=== PATIENT | female | born 1980 | race Caucasian/White ===

== ENCOUNTER 2016-02-13 20:58 | Emergency (ER) | payer SELFPAY ==
[~2016-02-13] VITALS: Ht 157.5 cm; Wt 77.3 kg
[~2016-02-13 20:58] MED LIST: ACETAMINOPHEN W1 TA6 PO; ALBUTEROL S0.4 MG/ML INH; ALBUTEROL0.83 MG/ML IH; AMOXICILLIN 50500 MG PO; AMOXICILLIN 8751 TAB PO; AMOXICILLIN250 MG PO; ANUSOL-HC SUPPO25 MG RC; ATIVAN 0.50.5 MG/TAB PO; ATIVAN1 MG PO; BACTRIM DS 8001 TAB PO; CELEXA; CELEXA20 MG PO; CEPHALEXIN500 M1 PO; CIPRO 500MG TA500 MG PO; CLARITIN 1010 MG/TAB PO; CLINDAMYCIN HC300 MG PO; DOXYCYCLINE 10100 MG PO; EC NAPROSYN500 MG PO; EFFEXOR XR75 MG/CAP PO; ESCITALOPRAM; FISH OIL CONC1000 MG PO; FISH OIL CONCEN1 SGL PO; FLAGYL500 MG PO; FLEXERIL10 MG PO; FLONASE NASAL S16 GM NS; LORTAB 5/500 501 TAB PO; MACROBID 1100 MG/CAP PO; METRONIDAZOLE500 MG PO; MOTRIN800 MG PO; NICODERM14 MG/24 H TD; NORCO 325 MG-51 TAB PO; NORCO 325 MG-7.1 TAB PO; ONE DAILY1 TA1 PO; OPTIVAR IO; PEPCID 20MG TAB20 MG PO; PERCOCET 325 MG1 TA2 PO; PERCOCET 5/321 UDTAB PO; PHENERGAN 25 TA25 MG PO; PHENERGAN25 MG RC; PREDNISONE20 MG PO; PRENATAL1 TA2 PO; PROMETHAZINE12.5 M5 PO; PROVENTIL0.09 MG/A1 IH; TYLENOL 500MG500 MG PO; TYLENOL W/COD1 UDTAB PO; VALTREX500 MG PO; WOMEN'S ONE DAI1 TAB PO; ZITHROMAX 250M250 MG PO; ZITHROMAX Z PA250 MG PO; ZOFRAN 4MG T4 MG/TAB PO; ZOFRAN ODT4 MG PO; ZOVIRAX 200MG200 MG PO; oral birth control PO
[2016-02-13 20:59] VITALS: TEMP 99.6
[2016-02-13 21:29] LABS: BASO # 0.1 (0.0-0.2); BASO % 0.8 % (0.0-2.0); EOS # 0.2 (0.0-0.7); GRAN # 3.6 (1.4-6.5); GRAN % 59.8 % (42.2-75.2); HEMATOCRIT 38.8 % (37.0-47.0); HEMOGLOBIN 13.4 g/dl (12.5-16.0); LYMPH # 1.8 (1.2-3.4); MEAN CELL VOLUME 87 fl (80.0-100.0); MEAN CORPUSCULAR HEMOGLOBIN 30 pg (27.0-31.0); MEAN CORPUSCULAR HGB CONC 35 g/dl (33.0-37.0); MEAN PLATELET VOLUME 10.7 fl (7.4-10.4); MONO # 0.4 (0.1-0.6); MONO % 5.9 % (1.7-9.3); PLATELET COUNT 175 K/mm3 (130-400); RED BLOOD COUNT 4.46 M/mm3 (4.10-5.30); REDCELL DISTRIBUTION WIDTH-CV 12.5 % (11.5-14.5)
[2016-02-13 21:33] LABS: INR 1.2 (0.8-3.0)
[2016-02-13 21:42] LABS: ADJUSTED CALCIUM 9.5 mg/dL (8.4-10.2); ALANINE AMINOTRANSFERASE 121 U/L (9-52); ALBUMIN 4.1 gm/dL (3.5-5.0); ALKALINE PHOSPHATASE 140 U/L (50-136); ANION GAP 11 mmol/L (7-16); BILIRUBIN,TOTAL 0.9 mg/dL (0.0-1.0); BLOOD UREA NITROGEN 10 mg/dL (7-17); CALCIUM 9.6 mg/dL (8.4-10.2); CARBON DIOXIDE 25 mmol/L (22-30); CHLORIDE 99 mmol/L (98-107); CREATININE, serum 0.56 mg/dL (0.52-1.25); GLUCOSE 275 mg/dL (74-106); LIPASE 311 U/L (23-300); POTASSIUM 3.7 mmol/L (3.4-5.0); SODIUM 136 mmol/L (137-145)
[2016-02-13 21:55] LABS: TROPONIN-I < 0.012 ng/mL (0.000-0.034)
[2016-02-14 00:02] VITALS: BP 115/74; PULSE 83
== END 2016-02-14 00:05 | disposition home or self-care (01) ==
LOC: COL.ER 20:58
PROVIDERS: Emergency Medicine
DX: R07.9 Chest pain, unspecified (principal)
CPT/HCPCS: G0463; J2270

== ENCOUNTER 2016-05-16 21:01 | Emergency (ER) | payer SELFPAY ==
[~2016-05-16] VITALS: Ht 157.5 cm; Wt 75.0 kg
[2016-05-16 21:08] VITALS: TEMP 100.4
[2016-05-16] MEDS ORDERED: GLUCOPHAGE1000 MG PO (21:11)
[2016-05-16 22:27] LABS: BASO # 0.1 (0.0-0.2); BASO % 0.8 % (0.0-2.0); EOS # 0.3 (0.0-0.7); GRAN # 4.3 (1.4-6.5); GRAN % 69.1 % (42.2-75.2); HEMATOCRIT 40.1 % (37.0-47.0); HEMOGLOBIN 13.5 g/dl (12.5-16.0); LYMPH # 1.2 (1.2-3.4); LYMPH % 18.8 % (20.0-51.0); MEAN CELL VOLUME 86 fl (80.0-100.0); MEAN CORPUSCULAR HEMOGLOBIN 29 pg (27.0-31.0); MEAN CORPUSCULAR HGB CONC 34 g/dl (33.0-37.0); MEAN PLATELET VOLUME 10.3 fl (7.4-10.4); MONO # 0.4 (0.1-0.6); MONO % 5.8 % (1.7-9.3); PLATELET COUNT 168 K/mm3 (130-400); RED BLOOD COUNT 4.67 M/mm3 (4.10-5.30); REDCELL DISTRIBUTION WIDTH-CV 12.6 % (11.5-14.5); WHITE BLOOD COUNT 6.2 K/mm3 (4.8-10.8)
[2016-05-16 22:36] LABS: HCG-QUALITATIVE URINE NEGATIVE
[2016-05-16 22:37] LABS: ALBUMIN 4.5 gm/dL (3.5-5.0); CALCIUM 9.4 mg/dL (8.4-10.2); CREATININE, serum 0.55 mg/dL (0.52-1.25); PH 6 (5-8); POTASSIUM 3.3 mmol/L (3.4-5.0); SQUAMOUS EPITHELIAL 0-2 /hpf; TOTAL PROTEIN 7.2 gm/dL (6.4-8.2); URINE APPEARANCE Clear; URINE BACTERIA None Seen /hpf; URINE BILIRUBIN Negative (NEGATIVE); URINE BLOOD Negative (NEGATIVE); URINE COLOR Yellow; URINE GLUCOSE 2+ (NEGATIVE); URINE KETONE Negative (NEGATIVE); URINE RBC 0-2 /hpf; URINE UROBILINOGEN >=4.0 mg/dL (NEGATIVE); URINE WBC 0-2 /hpf
[2016-05-16 22:48] LABS: INFLUENZA B NEGATIVE
[2016-05-17] MEDS ORDERED: ZOFRAN ODT4 MG PO (00:19)
[2016-05-17] MEDS ORDERED: CARAFATE 1GM1 G PO (01:03)
[2016-05-17 01:11] VITALS: BP 130/80; PULSE 97
== END 2016-05-17 01:16 | disposition home or self-care (01) ==
LOC: COL.ER 21:01
PROVIDERS: Emergency Medicine
DX: J20.8 Acute bronchitis due to other specified organisms (principal); J06.9 Acute upper respiratory infection, unspecified; R11.10 Vomiting, unspecified
CPT/HCPCS: J2405; J2550; J7030

== ENCOUNTER 2016-07-18 12:52 | Emergency (ER) | payer SELFPAY ==
[~2016-07-18] VITALS: Ht 157.5 cm; Wt 84.1 kg
[~2016-07-18 12:52] MED LIST changes: +CARAFATE 1GM1 G PO; +GLUCOPHAGE1000 MG PO
[2016-07-18 13:00] VITALS: BP 134/75; PULSE 90; TEMP 98.5
[2016-07-18] MEDS ORDERED: PRINIVIL10 MG (13:03)
[2016-07-18] MEDS ORDERED: FLOXIN OTIC DROP5 ML OT (13:41)
== END 2016-07-18 13:48 | disposition home or self-care (01) ==
LOC: COL.ER 12:52
DX: H60.92 Unspecified otitis externa, left ear (principal); F17.210 Nicotine dependence, cigarettes, uncomplicated; E11.9 Type 2 diabetes mellitus without complications; Z79.84 Long term (current) use of oral hypoglycemic drugs

== ENCOUNTER 2016-08-17 19:59 | Emergency (ER) | payer SELFPAY ==
[~2016-08-17] VITALS: Ht 157.5 cm; Wt 70.5 kg
[~2016-08-17 19:59] MED LIST changes: +FLOXIN OTIC DROP5 ML OT; +PRINIVIL10 MG
[2016-08-17 20:00] VITALS: TEMP 99.8
[2016-08-17 20:35] LABS: BASO % 0.7 % (0.0-2.0); EOS # 0.4 (0.0-0.7); EOS % 6.7 % (0-4.0); GRAN # 3.4 (1.4-6.5); GRAN % 54.7 % (42.2-75.2); HEMATOCRIT 40.1 % (37.0-47.0); HEMOGLOBIN 13.8 g/dl (12.5-16.0); LYMPH % 32.6 % (20.0-51.0); MEAN CELL VOLUME 87 fl (80.0-100.0); MEAN CORPUSCULAR HEMOGLOBIN 30 pg (27.0-31.0); MEAN CORPUSCULAR HGB CONC 34 g/dl (33.0-37.0); MEAN PLATELET VOLUME 10.7 fl (7.4-10.4); MONO # 0.3 (0.1-0.6); MONO % 5.1 % (1.7-9.3); PLATELET COUNT 172 K/mm3 (130-400); REDCELL DISTRIBUTION WIDTH-CV 12.6 % (11.5-14.5); WHITE BLOOD COUNT 6.1 K/mm3 (4.8-10.8)
[2016-08-17 20:40] LABS: PH 5 (5-8); URINE APPEARANCE Clear; URINE BACTERIA Rare /hpf; URINE BILIRUBIN Negative (NEGATIVE); URINE BLOOD Negative (NEGATIVE); URINE COLOR Yellow; URINE GLUCOSE 1+ (NEGATIVE); URINE KETONE Trace (NEGATIVE); URINE RBC 0-2 /hpf; URINE UROBILINOGEN >=4.0 mg/dL (NEGATIVE); URINE WBC 0-2 /hpf
[2016-08-17 20:43] LABS: ADJUSTED CALCIUM 8.7 mg/dL (8.4-10.2); ALBUMIN 4.2 gm/dL (3.5-5.0); BILIRUBIN,TOTAL 0.5 mg/dL (0.0-1.0); CALCIUM 8.9 mg/dL (8.4-10.2); CREATININE, serum 0.66 mg/dL (0.52-1.25); POTASSIUM 3.4 mmol/L (3.4-5.0); TOTAL PROTEIN 6.9 gm/dL (6.4-8.2)
[2016-08-17 21:55] VITALS: BP 121/77; PULSE 77
== END 2016-08-17 21:59 | disposition home or self-care (01) ==
LOC: COL.ER 19:59
PROVIDERS: Emergency Medicine
DX: T67.5XXA Heat exhaustion, unspecified, initial encounter (principal)
CPT/HCPCS: J2550; J7030

== ENCOUNTER 2016-09-13 19:03 | Emergency (ER) | payer SELFPAY ==
[~2016-09-13] VITALS: Ht 157.5 cm; Wt 95.0 kg
[2016-09-13 19:06] VITALS: BP 135/85; TEMP 99
[2016-09-13 20:22] VITALS: PULSE 95
== END 2016-09-13 20:22 | disposition home or self-care (01) ==
LOC: COL.ER 19:03
DX: J06.9 Acute upper respiratory infection, unspecified (principal); J45.909 Unspecified asthma, uncomplicated; E11.9 Type 2 diabetes mellitus without complications; F32.9 Major depressive disorder, single episode, unspecified; F41.9 Anxiety disorder, unspecified; F17.210 Nicotine dependence, cigarettes, uncomplicated; Z79.84 Long term (current) use of oral hypoglycemic drugs; Z90.49 Acquired absence of other specified parts of digestive tract

== ENCOUNTER 2016-09-29 20:00 | Emergency (ER) | payer SELFPAY ==
[~2016-09-29] VITALS: Ht 157.5 cm; Wt 84.1 kg
[2016-09-29 20:02] VITALS: BP 132/80; TEMP 98.2
[2016-09-29] MEDS ORDERED: PREDNISONE20 MG PO (20:54)
[2016-09-29 21:00] VITALS: PULSE 73
== END 2016-09-29 21:02 | disposition home or self-care (01) ==
LOC: COL.ER 20:00
DX: J06.9 Acute upper respiratory infection, unspecified (principal); J45.909 Unspecified asthma, uncomplicated; F32.9 Major depressive disorder, single episode, unspecified; F41.9 Anxiety disorder, unspecified; E11.9 Type 2 diabetes mellitus without complications; F17.210 Nicotine dependence, cigarettes, uncomplicated; Z79.84 Long term (current) use of oral hypoglycemic drugs
CPT/HCPCS: J7512

== ENCOUNTER 2016-12-23 19:45 | Emergency (ER) | payer SELFPAY ==
[~2016-12-23] VITALS: Ht 157.5 cm; Wt 79.5 kg
[2016-12-23 19:47] VITALS: BP 126/87; PULSE 117; TEMP 101.3
[2016-12-23 21:02] LABS: STREP SCREEN POSITIVE
[2016-12-23 21:03] LABS: INFLUENZA A NEGATIVE; INFLUENZA B NEGATIVE
[2016-12-23] MEDS ORDERED: AMOXICILLIN 50500 MG PO (21:32)
== END 2016-12-23 22:03 | disposition home or self-care (01) ==
LOC: COL.ER 19:45
PROVIDERS: Physician Assistant
DX: J02.0 Streptococcal pharyngitis (principal); E11.9 Type 2 diabetes mellitus without complications; Z79.84 Long term (current) use of oral hypoglycemic drugs

== ENCOUNTER 2017-01-23 19:32 | Emergency (ER) | payer SELFPAY ==
[~2017-01-23] VITALS: Ht 157.5 cm; Wt 79.5 kg
[2017-01-23 19:43] VITALS: TEMP 98.8
[2017-01-23] MEDS ORDERED: PRINIVIL10 MG PO (19:57)
[2017-01-23 20:04] LABS: BASO # 0.1 (0.0-0.2); BASO % 1.1 % (0.0-2.0); EOS # 0.4 (0.0-0.7); EOS % 5.2 % (0-4.0); GRAN # 4.1 (1.4-6.5); GRAN % 54.5 % (42.2-75.2); HEMOGLOBIN 14.4 g/dl (12.5-16.0); LYMPH # 2.5 (1.2-3.4); LYMPH % 33.3 % (20.0-51.0); MEAN CELL VOLUME 87 fl (80.0-100.0); MEAN CORPUSCULAR HEMOGLOBIN 30 pg (27.0-31.0); MEAN CORPUSCULAR HGB CONC 34 g/dl (33.0-37.0); MEAN PLATELET VOLUME 10.1 fl (7.4-10.4); MONO # 0.4 (0.1-0.6); MONO % 5.6 % (1.7-9.3); PLATELET COUNT 188 K/mm3 (130-400); RED BLOOD COUNT 4.81 M/mm3 (4.10-5.30); WHITE BLOOD COUNT 7.5 K/mm3 (4.8-10.8)
[2017-01-23 20:13] LABS: ADJUSTED CALCIUM 8.7 mg/dL (8.4-10.2); ALANINE AMINOTRANSFERASE 92 U/L (9-52); ALKALINE PHOSPHATASE 109 U/L (50-136); ANION GAP 14 mmol/L (7-16); BILIRUBIN,TOTAL 0.7 mg/dL (0.0-1.0); BLOOD UREA NITROGEN 14 mg/dL (7-17); CALCIUM 9.5 mg/dL (8.4-10.2); CARBON DIOXIDE 21 mmol/L (22-30); CHLORIDE 105 mmol/L (98-107); CREATININE, serum 0.76 mg/dL (0.52-1.25); GLUCOSE 110 mg/dL (74-106); POTASSIUM 3.6 mmol/L (3.4-5.0); SODIUM 140 mmol/L (137-145); TOTAL PROTEIN 8.1 gm/dL (6.4-8.2)
[2017-01-23 20:24] LABS: TROPONIN-I < 0.012 ng/mL (0.000-0.034)
[2017-01-23 20:34] LABS: INFLUENZA A NEGATIVE; INFLUENZA B NEGATIVE
[2017-01-23] MEDS ORDERED: ZITHROMAX Z PA250 MG PO (20:54)
[2017-01-23 21:30] VITALS: BP 116/78; PULSE 79
== END 2017-01-23 21:19 | disposition home or self-care (01) ==
LOC: COL.ER 19:32
PROVIDERS: Family Medicine
DX: J20.9 Acute bronchitis, unspecified (principal); R09.1 Pleurisy; F17.210 Nicotine dependence, cigarettes, uncomplicated; Z79.84 Long term (current) use of oral hypoglycemic drugs
CPT/HCPCS: J1885; J2405

== ENCOUNTER 2017-03-29 10:35 | Emergency (ER) | payer SELFPAY ==
[~2017-03-29] VITALS: Ht 157.5 cm; Wt 70.5 kg
[2017-03-29 10:35] VITALS: BP 138/86; TEMP 98.2
[~2017-03-29 10:35] MED LIST changes: +PRINIVIL10 MG PO
[2017-03-29] MEDS ORDERED: FLEXERIL 1010 MG/TAB PO (12:08)
[2017-03-29 12:15] VITALS: PULSE 75
== END 2017-03-29 12:28 | disposition home or self-care (01) ==
LOC: COL.ER 10:35
DX: S80.02XA Contusion of left knee, initial encounter (principal); S16.1XXA Strain of muscle, fascia and tendon at neck level, initial encounter; S39.012A Strain of muscle, fascia and tendon of lower back, initial encounter; F17.210 Nicotine dependence, cigarettes, uncomplicated; V49.40XA Driver injured in collision with unspecified motor vehicles in traffic accident, initial encounter
CPT/HCPCS: J3010

== ENCOUNTER 2017-04-30 13:28 | Emergency (ER) | payer SELFPAY ==
[~2017-04-30] VITALS: Ht 157.5 cm; Wt 65.9 kg
[~2017-04-30 13:28] MED LIST changes: +FLEXERIL 1010 MG/TAB PO
[2017-04-30 13:32] VITALS: BP 127/78; PULSE 93; TEMP 98.1
== END 2017-04-30 14:03 | disposition home or self-care (01) ==
LOC: COL.ER 13:28
DX: S61.216A Laceration without foreign body of right little finger without damage to nail, initial encounter (principal); E11.9 Type 2 diabetes mellitus without complications; I10 Essential (primary) hypertension; F17.210 Nicotine dependence, cigarettes, uncomplicated; Z79.84 Long term (current) use of oral hypoglycemic drugs; W26.0XXA Contact with knife, initial encounter; Y93.G1 Activity, food preparation and clean up; Y92.009 Unspecified place in unspecified non-institutional (private) residence as the place of occurrence of the external cause

== ENCOUNTER → 2017-05-11 | Emergency (ER) | payer SELFPAY ==
[2017-05-11 16:25] VITALS: BP 136/77; PULSE 92
== END ==
LOC: COL.ER 15:50
DX: S61.216D Laceration without foreign body of right little finger without damage to nail, subsequent encounter (principal); X58.XXXD Exposure to other specified factors, subsequent encounter

== ENCOUNTER 2017-09-29 10:47 | Emergency (ER) | payer SELFPAY ==
[~2017-09-29] VITALS: Ht 157.5 cm; Wt 65.0 kg
[2017-09-29 10:51] VITALS: BP 133/81; TEMP 99.4
[2017-09-29 11:01] LABS: COLLECTION METHOD CLEAN CATCH
[2017-09-29 11:11] LABS: MUCOUS Present /lpf; PH 5 (5-8); URINE APPEARANCE Hazy; URINE BACTERIA None Seen /hpf; URINE BILIRUBIN Negative (NEGATIVE); URINE BLOOD Negative (NEGATIVE); URINE COLOR Yellow; URINE GLUCOSE Negative (NEGATIVE); URINE KETONE Negative (NEGATIVE); URINE LEUKOCYTE ESTERASE Negative (NEGATIVE); URINE NITRATE Negative (NEGATIVE); URINE PROTEIN(semi-quant) Negative (NEGATIVE)
[2017-09-29 11:22] LABS: BASO # 0.1 (0.0-0.2); BASO % 0.8 % (0.0-2.0); EOS # 0.4 (0.0-0.7); EOS % 5.4 % (0-4.0); GRAN # 4.4 (1.4-6.5); GRAN % 59.8 % (42.2-75.2); HEMATOCRIT 43.1 % (37.0-47.0); HEMOGLOBIN 14.3 g/dl (12.5-16.0); LYMPH # 2.1 (1.2-3.4); LYMPH % 28.8 % (20.0-51.0); MEAN CELL VOLUME 87 fl (80.0-100.0); MEAN CORPUSCULAR HEMOGLOBIN 29 pg (27.0-31.0); MEAN CORPUSCULAR HGB CONC 33 g/dl (33.0-37.0); MEAN PLATELET VOLUME 10.3 fl (7.4-10.4); MONO # 0.4 (0.1-0.6); MONO % 4.9 % (1.7-9.3); PLATELET COUNT 223 K/mm3 (130-400); RED BLOOD COUNT 4.93 M/mm3 (4.10-5.30)
[2017-09-29 11:32] LABS: ALBUMIN 4.2 gm/dL (3.5-5.0); BILIRUBIN,TOTAL 0.5 mg/dL (0.0-1.0); CALCIUM 8.6 mg/dL (8.4-10.2); CREATININE, serum 0.68 mg/dL (0.52-1.25); POTASSIUM 3.7 mmol/L (3.4-5.0)
[2017-09-29] MEDS ORDERED: ULTRAM 50MG TAB50 MG PO (11:49)
[2017-09-29] MEDS ORDERED: FLEXERIL 1010 MG/TAB PO (11:49)
[2017-09-29] MEDS ORDERED: NAPROXEN 3375 MG/TAB PO (11:49)
[2017-09-29 12:04] VITALS: PULSE 69
== END 2017-09-29 12:05 | disposition home or self-care (01) ==
LOC: COL.ER 10:47
PROVIDERS: Nurse Practitioner
DX: M54.5 Low back pain (principal); R10.9 Unspecified abdominal pain; M62.830 Muscle spasm of back; E11.9 Type 2 diabetes mellitus without complications; Z79.84 Long term (current) use of oral hypoglycemic drugs
CPT/HCPCS: J1885; J2405; J3010; J7030

== ENCOUNTER 2017-10-09 14:48 | Emergency (ER) | payer SELFPAY ==
[~2017-10-09] VITALS: Ht 157.5 cm; Wt 65.0 kg
[~2017-10-09 14:48] MED LIST changes: +NAPROXEN 3375 MG/TAB PO; +ULTRAM 50MG TAB50 MG PO
[2017-10-09 14:55] VITALS: TEMP 98.4
[2017-10-09 15:32] LABS: BASO # 0.1 (0.0-0.2); BASO % 0.8 % (0.0-2.0); EOS # 0.4 (0.0-0.7); EOS % 6.3 % (0-4.0); GRAN # 3.9 (1.4-6.5); HEMATOCRIT 43.5 % (37.0-47.0); HEMOGLOBIN 14.9 g/dl (12.5-16.0); LYMPH # 1.8 (1.2-3.4); LYMPH % 27.3 % (20.0-51.0); MEAN CELL VOLUME 85 fl (80.0-100.0); MEAN CORPUSCULAR HEMOGLOBIN 29 pg (27.0-31.0); MEAN CORPUSCULAR HGB CONC 34 g/dl (33.0-37.0); MEAN PLATELET VOLUME 10.5 fl (7.4-10.4); MONO # 0.4 (0.1-0.6); MONO % 6.1 % (1.7-9.3); PLATELET COUNT 208 K/mm3 (130-400); RED BLOOD COUNT 5.13 M/mm3 (4.10-5.30)
[2017-10-09 15:33] LABS: ALBUMIN 4.4 gm/dL (3.5-5.0); BILIRUBIN,TOTAL 0.5 mg/dL (0.0-1.0); C-REACTIVE PROTEIN 1.2 mg/dL (0.0-0.9); CALCIUM 9.1 mg/dL (8.4-10.2); CREATININE, serum 0.63 mg/dL (0.52-1.25); POTASSIUM 3.6 mmol/L (3.4-5.0); TOTAL PROTEIN 7.5 gm/dL (6.4-8.2)
[2017-10-09 15:47] LABS: COLLECTION METHOD CLEAN CATCH
[2017-10-09 15:54] LABS: MUCOUS Present /lpf; PH 6 (5-8); URINE APPEARANCE Clear; URINE BACTERIA None Seen /hpf; URINE BILIRUBIN Negative (NEGATIVE); URINE BLOOD Negative (NEGATIVE); URINE COLOR Yellow; URINE GLUCOSE Negative (NEGATIVE); URINE KETONE Negative (NEGATIVE); URINE LEUKOCYTE ESTERASE Negative (NEGATIVE); URINE NITRATE Negative (NEGATIVE); URINE PROTEIN(semi-quant) Negative (NEGATIVE); URINE RBC 0-2 /hpf; URINE UROBILINOGEN Negative (NEGATIVE)
[2017-10-09] MEDS ORDERED: ZITHROMAX 250M250 MG PO (16:30)
[2017-10-09] MEDS ORDERED: PREDNISONE20 MG PO (16:30)
[2017-10-09 17:02] VITALS: BP 112/66; PULSE 82
== END 2017-10-09 17:14 | disposition home or self-care (01) ==
LOC: COL.ER 14:48
PROVIDERS: Emergency Medicine
DX: J45.909 Unspecified asthma, uncomplicated (principal); E11.9 Type 2 diabetes mellitus without complications; I10 Essential (primary) hypertension; F17.210 Nicotine dependence, cigarettes, uncomplicated; Z79.84 Long term (current) use of oral hypoglycemic drugs
CPT/HCPCS: J7030; J7512

== ENCOUNTER 2018-05-09 16:23 | Emergency (ER) | payer SELFPAY ==
[~2018-05-09] VITALS: Ht 157.5 cm; Wt 63.2 kg
[2018-05-09 16:27] VITALS: BP 135/80; TEMP 99.4
[2018-05-09 17:33] VITALS: PULSE 95
== END 2018-05-09 17:34 | disposition home or self-care (01) ==
LOC: COL.ER 16:23
DX: S89.91XA Unspecified injury of right lower leg, initial encounter (principal); Z98.890 Other specified postprocedural states; Z98.51 Tubal ligation status; W19.XXXA Unspecified fall, initial encounter; X50.0XXA Overexertion from strenuous movement or load, initial encounter; Y92.009 Unspecified place in unspecified non-institutional (private) residence as the place of occurrence of the external cause

== ENCOUNTER 2018-07-14 19:23 | Emergency (ER) | payer SELFPAY ==
[~2018-07-14] VITALS: Ht 157.5 cm; Wt 65.9 kg
[2018-07-14 19:39] VITALS: BP 136/77; TEMP 98
[2018-07-14] MEDS ORDERED: NORCO 325 MG-51 TAB PO (21:16)
[2018-07-14 21:37] VITALS: PULSE 76
== END 2018-07-14 21:40 | disposition home or self-care (01) ==
LOC: COL.ER 19:23
DX: S50.01XA Contusion of right elbow, initial encounter (principal); W01.0XXA Fall on same level from slipping, tripping and stumbling without subsequent striking against object, initial encounter; Y92.009 Unspecified place in unspecified non-institutional (private) residence as the place of occurrence of the external cause
CPT/HCPCS: J3010

== ENCOUNTER 2018-07-24 21:37 | Emergency (ER) | payer SELFPAY ==
[~2018-07-24] VITALS: Ht 157.5 cm; Wt 65.9 kg
[2018-07-24 22:02] VITALS: TEMP 98
[2018-07-24 23:40] LABS: BASO # 0.1 (0.0-0.2); BASO % 1.1 % (0.0-2.0); EOS # 0.4 (0.0-0.7); EOS % 8.1 % (0-4.0); GRAN % 43.5 % (42.2-75.2); HEMATOCRIT 42.2 % (37.0-47.0); HEMOGLOBIN 14.2 g/dl (12.5-16.0); LYMPH # 1.8 (1.2-3.4); LYMPH % 37.3 % (20.0-51.0); MEAN CELL VOLUME 87 fl (80.0-100.0); MEAN CORPUSCULAR HEMOGLOBIN 29 pg (27.0-31.0); MEAN CORPUSCULAR HGB CONC 34 g/dl (33.0-37.0); MEAN PLATELET VOLUME 9.8 fl (7.4-10.4); MONO # 0.5 (0.1-0.6); MONO % 9.6 % (1.7-9.3); PLATELET COUNT 186 K/mm3 (130-400); RED BLOOD COUNT 4.86 M/mm3 (4.10-5.30)
[2018-07-24 23:50] LABS: ALBUMIN 4.1 gm/dL (3.5-5.0); BILIRUBIN,TOTAL 0.5 mg/dL (0.0-1.0); CREATININE, serum 0.62 (0.52-1.25); PHOSPHOROUS 4.3 mg/dL (2.5-4.5); POTASSIUM 3.4 mmol/L (3.4-5.0); TOTAL PROTEIN 6.9 gm/dL (6.4-8.2)
[2018-07-25 00:21] LABS: COLLECTION METHOD CLEAN CATCH
[2018-07-25 01:01] LABS: PH 6 (5-8); SQUAMOUS EPITHELIAL 0-2 /hpf; URINE APPEARANCE Clear; URINE BACTERIA None Seen /hpf; URINE BILIRUBIN Negative (NEGATIVE); URINE BLOOD Negative (NEGATIVE); URINE COLOR Yellow; URINE GLUCOSE Negative (NEGATIVE); URINE KETONE Negative (NEGATIVE); URINE LEUKOCYTE ESTERASE Negative (NEGATIVE); URINE NITRATE Negative (NEGATIVE); URINE PROTEIN(semi-quant) Negative (NEGATIVE); URINE RBC 0-2 /hpf; URINE UROBILINOGEN Negative (NEGATIVE)
[2018-07-25] MEDS ORDERED: PHENERGAN 25 TA25 MG PO (01:10)
[2018-07-25 01:28] VITALS: BP 113/72; PULSE 66
== END 2018-07-25 01:30 | disposition home or self-care (01) ==
LOC: COL.ER 21:37
PROVIDERS: Emergency Medicine
DX: R19.7 Diarrhea, unspecified (principal); R11.10 Vomiting, unspecified; F41.9 Anxiety disorder, unspecified; F32.9 Major depressive disorder, single episode, unspecified; F17.210 Nicotine dependence, cigarettes, uncomplicated; Z98.51 Tubal ligation status; Z90.49 Acquired absence of other specified parts of digestive tract
CPT/HCPCS: J2550; J7030

== ENCOUNTER 2019-02-27 18:27 | Emergency (ER) | payer SELFPAY ==
[~2019-02-27] VITALS: Ht 157.5 cm; Wt 63.6 kg
[~2019-02-27 18:27] MED LIST changes: +MUCINEX 60600 MG/TA1 PO; +NICODERM C14 MG/PATC TD
[2019-02-27 19:13] VITALS: BP 128/73; TEMP 97.9
[2019-02-27 21:56] VITALS: PULSE 74
== END 2019-02-27 21:58 | disposition home or self-care (01) ==
LOC: COL.ER 18:27
DX: M23.92 Unspecified internal derangement of left knee (principal); W19.XXXA Unspecified fall, initial encounter
CPT/HCPCS: J1885; L1846

== ENCOUNTER 2019-11-14 09:02 | Emergency (ER) | payer OTHER ==
[~2019-11-14] VITALS: Ht 157.5 cm; Wt 67.3 kg
[2019-11-14 09:05] VITALS: TEMP 98.7
[2019-11-14] MEDS ORDERED: NAPROSYN500 MG PO (09:53)
[2019-11-14 10:04] VITALS: BP 129/81; PULSE 78
== END 2019-11-14 10:07 | disposition home or self-care (01) ==
LOC: COL.ER 09:02
DX: S83.92XA Sprain of unspecified site of left knee, initial encounter (principal); F17.210 Nicotine dependence, cigarettes, uncomplicated; W08.XXXA Fall from other furniture, initial encounter
CPT/HCPCS: J1885

== ENCOUNTER 2020-01-25 08:55 | Emergency (ER) | payer OTHER ==
[~2020-01-25] VITALS: Ht 157.5 cm; Wt 67.3 kg
[~2020-01-25 08:55] MED LIST changes: +NAPROSYN500 MG PO
[2020-01-25 09:07] VITALS: TEMP 98.1
[2020-01-25] MEDS ORDERED: AMOXICILLIN 50500 MG PO (09:42)
[2020-01-25] MEDS ORDERED: NORCO 325 MG-51 TAB PO (09:42)
[2020-01-25 10:19] VITALS: BP 126/67; PULSE 71
== END 2020-01-25 10:22 | disposition home or self-care (01) ==
LOC: COL.ER 08:55
DX: K04.7 Periapical abscess without sinus (principal)

== ENCOUNTER 2020-02-21 13:40 | Emergency (ER) | payer OTHER ==
[~2020-02-21] VITALS: Ht 157.5 cm; Wt 68.2 kg
[2020-02-21 13:49] VITALS: BP 130/91; TEMP 98.8
[2020-02-21] MEDS ORDERED: ZYRTEC 10MG10 MG PO (14:36)
[2020-02-21] MEDS ORDERED: PREDNISONE20 MG PO (14:36)
[2020-02-21 14:45] VITALS: PULSE 85
== END 2020-02-21 14:45 | disposition home or self-care (01) ==
LOC: COL.ER 13:40
DX: L50.9 Urticaria, unspecified (principal); F17.210 Nicotine dependence, cigarettes, uncomplicated; Z88.1 Allergy status to other antibiotic agents

== ENCOUNTER 2020-10-12 13:37 | Emergency (ER) | payer SELFPAY ==
[~2020-10-12] VITALS: Ht 157.5 cm; Wt 63.6 kg
[~2020-10-12 13:37] MED LIST changes: +ZYRTEC 10MG10 MG PO
[2020-10-12 13:49] VITALS: BP 127/94; TEMP 98.3
[2020-10-12] MEDS ORDERED: ZOFRAN ODT4 MG PO (14:38)
[2020-10-12 14:50] VITALS: PULSE 80
== END 2020-10-12 14:50 | disposition home or self-care (01) ==
LOC: COL.ER 13:37
DX: B34.9 Viral infection, unspecified (principal); J45.909 Unspecified asthma, uncomplicated; Z20.822 Contact with and (suspected) exposure to COVID-19

== ENCOUNTER 2023-02-08 10:44 | Emergency (ER) | payer OTHER ==
[~2023-02-08] VITALS: Ht 154.9 cm; Wt 63.6 kg
[2023-02-08 10:51] VITALS: TEMP 97.5
[2023-02-08 11:23] LABS: BASO # 0.1 K/mm3 (0.0-0.2); BASO % 0.9 % (0.0-2.0); EOS # 0.9 K/mm3 (0.0-0.7); EOS % 13.3 % (0.0-4.0); GRAN # 3.9 K/mm3 (1.4-6.5); GRAN % 61.5 % (42.2-75.2); HEMATOCRIT 42.6 % (37.0-47.0); HEMOGLOBIN 14.6 g/dl (12.5-16.0); LYMPH # 1.2 K/mm3 (1.2-3.4); LYMPH % 18.8 % (20.0-51.0); MEAN CELL VOLUME 88 fl (80.0-100.0); MEAN CORPUSCULAR HEMOGLOBIN 30 pg (27-31); MEAN CORPUSCULAR HGB CONC 34 g/dl (33.0-37.0); MEAN PLATELET VOLUME 9.8 fl (7.4-10.4); MONO # 0.3 K/mm3 (0.1-0.6); MONO % 5.3 % (1.7-9.3); PLATELET COUNT 196 K/mm3 (130-400); RED BLOOD COUNT 4.84 M/mm3 (4.10-5.30); REDCELL DISTRIBUTION WIDTH-CV 13.3 % (11.5-14.5)
[2023-02-08 11:35] LABS: COLLECTION METHOD CLEAN CATCH
[2023-02-08 11:37] LABS: ALBUMIN 3.9 gm/dL (3.5-5.0); BILIRUBIN,TOTAL 0.7 mg/dL (0.2-1.2); CALCIUM 8.9 mg/dL (8.4-10.2); CREATININE, serum 0.75 mg/dL (0.57-1.11); POTASSIUM 3.5 mmol/L (3.5-4.5); TOTAL PROTEIN 6.3 gm/dL (6.2-8.1)
[2023-02-08 11:54] LABS: URINE APPEARANCE Clear (CLEAR/HAZY); URINE BLOOD Negative (NEGATIVE); URINE COLOR Yellow (YELLOW); URINE GLUCOSE Negative (NEGATIVE); URINE KETONE Negative (NEGATIVE); URINE NITRATE Negative (NEGATIVE); URINE PROTEIN(semi-quant) Negative (NEGATIVE)
[2023-02-08 11:55] LABS: MUCOUS Present (NOT PRESENT); URINE BACTERIA Rare /hpf (NONE SEEN); URINE RBC 0-2 /hpf (0-2)
[2023-02-08 11:58] LABS: PROLACTIN 10.9 ng/mL (5.18-26.53); TSH w REFLEX 1.665 uIU/mL (0.350-4.940)
[2023-02-08 15:30] VITALS: BP 125/85; PULSE 75
== END 2023-02-08 15:30 | disposition home or self-care (01) ==
LOC: COL.ER 10:44
PROVIDERS: Emergency Medicine
DX: R56.9 Unspecified convulsions (principal); F17.210 Nicotine dependence, cigarettes, uncomplicated
CPT/HCPCS: A9575

== ENCOUNTER 2023-03-07 11:43 | Outpatient (CLI) | payer OTHER ==
[2005-01-15 11:40] VITALS: TEMP 97.9
[2023-03-07] VITALS (9 sets, daily range): BP systolic 106–132; BP diastolic 73–82; PULSE 65–73; TEMP 98.1
[~2023-03-07] VITALS: Ht 154.9 cm; Wt 72.0 kg
[2023-03-07 14:43] LABS: CSF APPEARANCE CLEAR; CSF COLOR COLORLESS; CSF MONONUCLEAR 0 % (70-100); CSF POLYMORPHONUCLEAR 0 % (0-6); CSF RBC 0 /mm3 (0-0)
[2023-03-07 14:44] LABS: GLUCOSE,CSF 58 mg/dL (40-70); TOTAL PROTEIN,CSF 45 mg/dL (15-45)
--- NOTE | 2023-03-07 15:11 | NUR ---
Pt was brought to [facility] post lumbar puncture. Bedrest for 1 hr. Offered the pt water, they accepted. Advised the pt to drink lots of water to stay hydrated. Pt reported a headache and requested some tylenol. The DR was notified and tylenol 500mg PO was ordered and given. Labs drawn. Post bedrest the pt was given discharge education and information. No questions at this time. Pt exited the unit with a steady gait accompanied by nurse and signficant other.
[2023-03-09 09:12] LABS: ALBUMUN SERUM 4.2 g/dL (3.9-4.9)
[2023-03-09 13:12] LABS: ALBUMIN CSF 30 mg/dL (7-29); CSF,IGG 3.4 mg/dL (0.0-6.7)
[2023-03-10 07:18] LABS: CSF SYNTHESIS RATE 4.5 mg/day (()); IGG,SERUM 639 mg/dL (586-1602)
== END 2023-03-07 15:06 | disposition home or self-care (01) ==
LOC: COL.RAD 11:43
PROVIDERS: Internal Medicine
DX: R25.1 Tremor, unspecified (principal); R42 Dizziness and giddiness; R20.2 Paresthesia of skin; R90.89 Other abnormal findings on diagnostic imaging of central nervous system